=== PATIENT | female | born 1995 | race Two or more races ===

== ENCOUNTER 2018-11-21 14:39 | Emergency (ER) | payer BC ==
[2018-11-21 15:25] VITALS: BP 108/72
--- NOTE | 2018-11-21 15:33 | UC ---
Respiratory Complaint HPI - HPI Summary HPI Summary: 23 yo female with onset of uri symptoms about two weeks ago Lasted about 4-5 days then she felt back to normal Now with 3 day history of fever/chill, headache and myalgias sore throat and cough no n/v/d - History of Current Complaint Chief Complaint: UCRespiratory Stated Complaint: FLU SYMPTOMS Time Seen by Provider: 11/21/18 14:42 Hx Obtained From: Patient Hx Last Menstrual Period: 2 days ago Onset/Duration: Gradual Onset, Lasting Days Timing: Constant Severity Initially: Mild Severity Currently: Moderate Pain Intensity: 2 Pain Scale Used: 0-10 Numeric Character: Cough: Nonproductive Aggravating Factors: Nothing Associated Signs And Symptoms: Positive: Fever, Chills, URI, Nasal Congestion, Hoarseness - Allergies/Home Medications Allergies/Adverse Reactions: Allergies Allergy/AdvReac Type Severity Reaction Status Date / Time No Known Allergies Allergy Verified 11/21/18 15:19 Home Medications: Home Medications D-Methorphan/PE/Acetaminophen [Daytime Cold Multi-Symp Gelcap] 1 each PO DAILY PRN 11/21/18 [History Confirmed 11/21/18] PMH/Surg Hx/FS Hx/Imm Hx Previously Healthy: Yes - Surgical History Surgical History: None - Family History Known Family History: Positive: Hypertension Negative: Cardiac Disease, Diabetes - Social History Alcohol Use: Occasionally Substance Use Type: Marijuana Substance Use Comment - Amount & Last Used: monthly Smoking Status (MU): Never Smoked Tobacco Review of Systems All Other Systems Reviewed And Are Negative: Yes Constitutional: Positive: Fever, Chills, Fatigue Skin: Positive: Negative Eyes: Positive: Negative ENT: Positive: Sore Throat, Nasal Discharge Respiratory: Positive: Cough Cardiovascular: Positive: Negative Gastrointestinal: Positive: Negative Genitourinary: Positive: Negative Motor: Positive: Negative Neurovascular: Positive: Negative Musculoskeletal: Positive: Myalgia Neurological: Positive: Headache Psychological: Positive: Negative Physical Exam Triage Information Reviewed: Yes Appearance: Well-Appearing, No Pain Distress, Well-Nourished Vital Signs: Initial Vital Signs Temp 99.2 F 11/21/18 15:20 Pulse 104 11/21/18 15:20 Resp 18 11/21/18 15:20 BP 108/72 11/21/18 15:20 Pulse Ox 96 11/21/18 15:20 Eyes: Positive: Conjunctiva Clear ENT: Positive: Hearing grossly normal, Nasal congestion, TMs normal, Tonsillar swelling, Tonsillar exudate, Uvula midline. Negative: Nasal drainage, Trismus, Muffled voice, Hoarse voice, Dental tenderness, Sinus tenderness Neck: Positive: Supple, Nontender, Enlarged Nodes @ - anterior cervical Respiratory: Positive: Lungs clear, Normal breath sounds, No respiratory distress, No accessory muscle use Cardiovascular: Positive: RRR, No Murmur Abdomen Description: Positive: Nontender, No Organomegaly. Negative: CVA Tenderness (R), CVA Tenderness (L), Distended, Splenomegaly Musculoskeletal: Positive: ROM Intact, No Edema Neurological: Positive: Alert, Muscle Tone Normal Psychological Exam: Normal Skin Exam: Normal Diagnostics - Laboratory Lab Results: strep - influenza - Respiratory Course/Dx - Course Course Of Treatment: advised not to work until fever free x 24 hours - Differential Dx/Diagnosis Provider Diagnosis: Tonsillitis Discharge ED - Sign-Out/Discharge Documenting (check all that apply): Patient Departure All imaging exams completed and their final reports reviewed: No Studies - Discharge Plan Condition: Stable Disposition: HOME Patient Education Materials: Tonsillitis (ED) Referrals: Irma Russo MD [Primary Care Provider] - 4 Days (if not better) Additional Instructions: blood count and mono test pending throat culture pending recheck for new or worsening symptoms - Billing Disposition and Condition Condition: STABLE Disposition: Home
[2018-11-21 15:36] LABS: Influenza A Molecular NEGATIVE (Negative); Influenza B Molecular NEGATIVE (Negative)
[2018-11-21 18:55] LABS: Hematocrit 41 % (35-47); Hemoglobin 13.7 g/dL (12.0-16.0); Mean Corpuscular HGB Conc 34 g/dL (31-36); Mean Corpuscular Hemoglobin 29 pg (27-31); Mean Corpuscular Volume 86 fL (80-97); Mean Platelet Volume 9.2 fL (7.4-10.4); Platelet Count 224 10^3/uL (150-450); Red Blood Count 4.72 10^6 /uL (3.70-4.87); Red Cell Distribution Width 13 % (10-15); White Blood Count 16.9 10^3/uL (3.5-10.8)
[2018-11-21 20:10] LABS: ABS Lymphocytes 1.8 10^3/ul (1.0-4.8); ABS Neutrophils 13.1 10^3/ul (1.5-7.7); Lymphocyte % 10.5 %
--- NOTE | 2018-11-22 10:27 | UC ---
- Progress Note Progress Note: CALLED PATIENT. NAME AND DATE OF VERIFIED. SHE STATES HER THROAT IS FEELING WORSE AND SHE IS HAVING INCREASING PAIN WITH SWALLOWING. CBC RETURNED WITH ELEVATED WHITE BLOOD CELL COUNT AND ELEVATED NEUTROPHILS SUGGESTIVE OF BACTERIAL INFECTION. WILL GO AHEAD AND COVER WITH AMOXICILLIN TWICE DAILY FOR 10 DAYS. ERX SENT TO [facility]. SHE WILL FOLLOW-UP WITH HER PCP THIS WEEK IF SHE IS NOT IMPROVING WITH THIS MEDICATION. ENCOURAGED REPEAT CBC TO ENSURE IT HAS RETURNED TO NORMAL ONCE SHE IS FEELING BETTER. PATIENT VERBALIZES UNDERSTANDING. Course/Dx - Diagnoses Provider Diagnoses: Tonsillitis Discharge ED - Sign-Out/Discharge Documenting (check all that apply): Post-Discharge Follow Up All imaging exams completed and their final reports reviewed: No Studies - Discharge Plan Condition: Stable Disposition: HOME Prescriptions: Amoxicillin PO (*) [Amoxicillin 500 MG CAP*] 1,000 mg PO Q12H #40 cap Patient Education Materials: Tonsillitis (ED) Referrals: Irma Russo MD [Primary Care Provider] - 4 Days (if not better) Additional Instructions: blood count and mono test pending throat culture pending recheck for new or worsening symptoms - Billing Disposition and Condition Condition: STABLE Disposition: Home
--- NOTE | 2018-11-22 15:41 | UC ---
- Progress Note Progress Note: Throat culture positive for Strep C -- likely the cause of elevated WBC mentioned by Dr. [place]. Pt was placed on amoxicillin. Please call her and let her know she has strep and to complete the antibiotic Course/Dx - Diagnoses Provider Diagnoses: Tonsillitis Discharge ED - Sign-Out/Discharge Documenting (check all that apply): Post-Discharge Follow Up All imaging exams completed and their final reports reviewed: No Studies - Discharge Plan Condition: Stable Disposition: HOME Prescriptions: Amoxicillin PO (*) [Amoxicillin 500 MG CAP*] 1,000 mg PO Q12H #40 cap Patient Education Materials: Tonsillitis (ED) Referrals: Irma Russo MD [Primary Care Provider] - 4 Days (if not better) Additional Instructions: blood count and mono test pending throat culture pending recheck for new or worsening symptoms - Billing Disposition and Condition Condition: STABLE Disposition: Home
== END 2018-11-21 16:08 | disposition home or self-care (01) ==
LOC: UCEAST 14:39
DX: J03.90 Acute tonsillitis, unspecified (principal); B95.4 Other streptococcus as the cause of diseases classified elsewhere
CPT/HCPCS: 36415; 85025; 86308; 87070; 87077; 87651; 99201; G0463